=== PATIENT | female | born 1940 | race Caucasian/White ===

== ENCOUNTER 2020-09-27 10:03 | Outpatient (CLI) | payer OTHER | END 2020-09-27 11:26 | disposition home or self-care (01) | LOC: SONOGRAMA 10:03 | PROVIDERS: ATTEND Pathology Anatomic Pathology & Clinical Pathology | DX: D44.2 Neoplasm of uncertain behavior of parathyroid gland (principal); D34 Benign neoplasm of thyroid gland; D04.9 Carcinoma in situ of skin, unspecified ==